=== PATIENT | male | born 1980 | race Caucasian/White ===

== ENCOUNTER 2020-03-25 20:12 | Emergency (ER) | payer OTHER ==
[2020-03-25 20:20] VITALS: BP 127/81; RESP 20; TEMP 98
[2020-03-25] MEDS ORDERED: IPRATROPIUM-ALBUTEROL 3 ML NEB INHALATION STA (20:48)
--- NOTE | 2020-03-25 21:13 | ED ---
Psych HPI - General Source: patient Mode of arrival: ambulatory <Abigail Wooten - Last Filed: 03/25/20 21:10> <Nyasia Ley - Last Filed: 03/26/20 02:33> - General Chief Complaint: Psychiatric Symptoms Stated Complaint: PETITION Time Seen by Provider: 03/25/20 20:23 - History of Present Illness Initial Comments: Patient is a 39-year-old male presenting to emergency Department for psychiatric evaluation. Patient states he just moved to [place] from [place] 2 weeks ago and he was supposed to be living with friends why he looks for job however those friends have told him to move out. Patient states he tried to go to a homeless senior care but he has too many personal items and they told him to leave. Patient states he has been sleeping on the streets for the past 4 days. He states that if he has to live on the streets anymore he feels like he is going to harm himself. He told police this and police petitioned him. Patient states he does not have a specific plan at this time. He denies any homicidal thoughts. He states he does take medication for depression and does have a history of asthma. Patient states since he moved to [place] he feels like his asthma symptoms have increased. He denies any fever, chills, shortness of breath. He does admit to some very mild wheezing. He denies taking alcohol today. Denies any drug use. He has no further complaints at this time. (Abigail Wooten) - Related Data Home Medications Medication Instructions Recorded Confirmed Albuterol Sulfate [Proair Hfa] 1 - 2 puff INHALATION RT-Q6H PRN 03/25/20 03/25/20 FLUoxetine HCL [PROzac] 20 mg PO DAILY 03/25/20 03/25/20 Gabapentin 600 mg PO TID 03/25/20 03/25/20 hydrOXYzine pamoate [Vistaril] 25 mg PO TID PRN 03/25/20 03/25/20 Allergies Allergy/AdvReac Type Severity Reaction Status Date / Time No Known Allergies Allergy Verified 03/25/20 21:04 Review of Systems ROS Other: All systems not noted in ROS Statement are negative. <Abigail Wooten - Last Filed: 03/25/20 21:10> ROS Other: All systems not noted in ROS Statement are negative. <Nyasia Ley - Last Filed: 03/26/20 02:33> ROS Statement: Those systems with pertinent positive or pertinent negative responses have been documented in the HPI. Past Medical History Past Medical History: Asthma, COPD History of Any Multi-Drug Resistant Organisms: None Reported Past Surgical History: Cholecystectomy Past Psychological History: Anxiety, Depression, PTSD Smoking Status: Current every day smoker Past Alcohol Use History: None Reported Past Drug Use History: Marijuana <Abigail Wooten - Last Filed: 03/25/20 21:10> General Exam Limitations: no limitations <Abigail Wooten - Last Filed: 03/25/20 21:10> - General Exam Comments Initial Comments: GENERAL: Patient is well-developed and well-nourished. Patient is nontoxic and in no acute distress. HEAD: Atraumatic, normocephalic. EYES: Pupils equal round and reactive to light, extraocular movements intact, sclera anicteric, conjunctiva are normal. Eyelids were unremarkable. ENT: TMs normal, nares patent, oropharynx clear without exudates. Moist mucous membranes. NECK: Normal range of motion, supple without lymphadenopathy or JVD. LUNGS: Unlabored respirations. Patient has scattered wheezes throughout. HEART: Regular rate and rhythm without murmurs, rubs or gallops. ABDOMEN: Soft, nontender, normoactive bowel sounds. No guarding, no rebound. No masses appreciated. : Deferred MUSCULOSKELETAL: Normal extremities with adequate strength and normal range of motion, no pitting or edema. No clubbing or cyanosis. NEUROLOGICAL: Patient is alert and oriented x 3. Motor and sensory are also intact. Cranial nerves II through XII grossly intact. Symmetrical smile. Normal speech, normal gait. PSYCH: Normal mood, normal affect. SKIN: Warm, Dry, normal turgor, no rashes or lesions noted. (Abigail Wooten) Course Vital Signs 03/25/20 03/25/20 03/25/20 20:17 21:21 21:30 Temperature 98.0 F Pulse Rate 78 76 80 Respiratory 20 Rate Blood Pressure 127/81 O2 Sat by Pulse 96 Oximetry Medical Decision Making <Abigail Wooten - Last Filed: 03/25/20 21:10> <Nyasia Ley - Last Filed: 10/18/20 02:33> - Medical Decision Making Patient is a 39-year-old male here for suicidal ideation. Patient was positioned by police. He just moved to [place] from [place] and the last one to 2 weeks and is now homeless. He does not have a specific plan at this time, denies homicidal thoughts. Patient does have a history of asthma and does have scattered wheezes on exam. I did give him a breathing treatment which did help with the symptoms. Patient will be evaluated by EPS. (Abigail Wooten) Patient was seen and evaluated by the emergency psychiatric services nurse, patient has no suicidal ideation. Does express concern about her homelessness and not being from the state. Patient will need multiple manager social work but no inpatient psychiatric care is warranted at this time. Patient was given information on local shelters however this after dark at this time therefore he cannot check in. He will be allowed to sleep in the emergency department tonight discharge in the morning with referral to shelters. (Nyasia Ley) Disposition <Abigail Wooten - Last Filed: 03/25/20 21:10> Is patient prescribed a controlled substance at d/c from ED?: No <Nyasia Ley - Last Filed: 03/26/20 02:33> Clinical Impression: Adjustment reaction of adult life Disposition: HOME SELF-CARE Condition: Stable Additional Instructions: Go to the senior care tonight as planned Referrals: None,Stated [Primary Care Provider] - 1-2 days
[2020-03-25 21:30] VITALS: PULSE 80
== END 2020-03-26 06:36 | disposition home or self-care (01) ==
LOC: EC 20:12
DX: F43.20 Adjustment disorder, unspecified (principal); J44.9 Chronic obstructive pulmonary disease, unspecified; F41.9 Anxiety disorder, unspecified; F32.9 Major depressive disorder, single episode, unspecified; F17.200 Nicotine dependence, unspecified, uncomplicated; Z79.899 Other long term (current) drug therapy; Z59.0 Homelessness
CPT/HCPCS: 82075; 94640; 99285

== ENCOUNTER 2020-04-19 22:46 | Emergency (ER) | payer OTHER ==
[2020-04-19] MEDS ORDERED: methylPREDNISolone SOD SUCCI 125 MG/2 ML VIAL IV STA (23:00)
[2020-04-19] MEDS ORDERED: IPRATROPIUM-ALBUTEROL 3 ML NEB INHALATION STA (23:00)
[2020-04-19] MEDS ORDERED: SODIUM CHLORIDE 0.9% 500 ML 500 ML IV STA (23:00)
--- NOTE | 2020-04-19 23:11 | ED ---
SOB HPI - General Chief Complaint: Shortness of Breath Stated Complaint: SOB, fever Time Seen by Provider: 04/19/20 22:47 Source: patient, EMS Mode of arrival: EMS Limitations: no limitations - History of Present Illness Initial Comments: Patient is a 39-year-old male presenting to emergency Department with complaints of shortness of breath of increasing over the past few days. Patient states he developed a cough about 3 days ago and has been having a few coughing fits. Patient states he does have a rescue inhaler that he uses occasionally but today he started having a small tickle in the back of his throat when he started coughing. Patient states he had a hard time catching his breath and also had some chest burning while he was coughing. He states he no longer has chest pain at this time. He does have history of asthma and COPD. He states he normally has a nebulizer but he recently moved to [place] does not have this anymore. He denies having a fever, abdominal pain, nausea, vomiting. He does live at a homeless care home at this time. He has no further complaints at this time. Upon arrival to the ER his vitals are stable. - Related Data Home Medications Medication Instructions Recorded Confirmed Albuterol Sulfate [Proair Hfa] 1 - 2 puff INHALATION RT-Q6H PRN 03/25/20 04/19/20 FLUoxetine HCL [PROzac] 20 mg PO DAILY 03/25/20 04/19/20 Gabapentin 600 mg PO TID 03/25/20 04/19/20 hydrOXYzine pamoate [Vistaril] 25 mg PO TID PRN 03/25/20 04/19/20 Previous Rx's Medication Instructions Recorded methylPREDNISolone [Medrol Dose 4 mg PO DIRECTED #1 pack 04/20/20 Pack] Allergies Allergy/AdvReac Type Severity Reaction Status Date / Time No Known Allergies Allergy Verified 04/19/20 23:40 Review of Systems ROS Statement: Those systems with pertinent positive or pertinent negative responses have been documented in the HPI. ROS Other: All systems not noted in ROS Statement are negative. Past Medical History Past Medical History: Asthma, COPD History of Any Multi-Drug Resistant Organisms: None Reported Past Surgical History: Cholecystectomy Past Psychological History: Anxiety, Depression, PTSD Smoking Status: Current every day smoker Past Alcohol Use History: None Reported Past Drug Use History: Marijuana General Exam - General Exam Comments Initial Comments: GENERAL: Patient is well-developed and well-nourished. Patient is nontoxic and in no acute distress. HEAD: Atraumatic, normocephalic. EYES: Pupils equal round and reactive to light, extraocular movements intact, sclera anicteric, conjunctiva are normal. Eyelids were unremarkable. ENT: TMs normal, nares patent, oropharynx clear without exudates. Moist mucous membranes. NECK: Normal range of motion, supple without lymphadenopathy or JVD. LUNGS: Unlabored respirations. Scattered wheezes throughout. Dry cough noted. HEART: Regular rate and rhythm without murmurs, rubs or gallops. ABDOMEN: Soft, nontender, normoactive bowel sounds. No guarding, no rebound. No masses appreciated. : Deferred MUSCULOSKELETAL: Normal extremities with adequate strength and normal range of motion, no pitting or edema. No clubbing or cyanosis. NEUROLOGICAL: Patient is alert and oriented x 3. Motor and sensory are also intact. Cranial nerves II through XII grossly intact. Symmetrical smile. Normal speech, normal gait. PSYCH: Normal mood, normal affect. SKIN: Warm, Dry, normal turgor, no rashes or lesions noted. Limitations: no limitations Course Vital Signs 04/19/20 04/19/20 04/19/20 22:47 23:10 23:26 Temperature 98.0 F Pulse Rate 98 86 86 Respiratory 27 H Rate Blood Pressure 135/96 O2 Sat by Pulse 97 Oximetry 04/20/20 04/20/20 00:46 01:14 Temperature 97.6 F 97.7 F Pulse Rate 84 97 Respiratory 20 18 Rate Blood Pressure 124/64 128/84 O2 Sat by Pulse 95 97 Oximetry Medical Decision Making - Medical Decision Making Patient is a 39-year-old male here for shortness of breath and a cough 3 days. His vitals are stable, afebrile. He does have history of asthma and COPD. Currently living in a homeless care home. EKG shows no acute process, chest x-ray shows no acute process. Labs are normal, influenza is negative, Covid test is pending. Patient did receive steroids, breathing treatment does report improve ment of symptoms. I discussed with patient this is most likely an asthma exacerbation, bronchitis. I will continue him on steroids with first dose starting tomorrow. He is stable for discharge. He does have albuterol inhaler at home. He can continue to use this for shortness of breath. Return parameters were discussed with the patient and he verbalized understanding. - Lab Data Result diagrams: 04/19/20 23:10 04/19/20 23:10 Lab Results 04/19/20 04/19/20 04/19/20 Range/Units 23:10 23:10 23:10 WBC 10.4 (3.8-10.6) k/uL RBC 4.58 (4.30-5.90) m/uL Hgb 12.6 L (13.0-17.5) gm/dL Hct 40.2 (39.0-53.0) % MCV 87.7 (80.0-100.0) fL MCH 27.6 (25.0-35.0) pg MCHC 31.4 (31.0-37.0) g/dL RDW 13.8 (11.5-15.5) % Plt Count 282 (150-450) k/uL MPV 8.0 Neutrophils % 65 % Lymphocytes % 21 % Monocytes % 5 % Eosinophils % 6 % Basophils % 2 % Neutrophils # 6.8 (1.3-7.7) k/uL Lymphocytes # 2.2 (1.0-4.8) k/uL Monocytes # 0.5 (0-1.0) k/uL Eosinophils # 0.6 (0-0.7) k/uL Basophils # 0.2 (0-0.2) k/uL PT 10.4 (9.0-12.0) sec INR 1.0 (<1.2) APTT 23.4 (22.0-30.0) sec Sodium 137 (137-145) mmol/L Potassium 4.7 (3.5-5.1) mmol/L Chloride 103 (98-107) mmol/L Carbon Dioxide 31 H (22-30) mmol/L Anion Gap 3 mmol/L BUN 18 (9-20) mg/dL Creatinine 0.86 (0.66-1.25) mg/dL Est GFR (CKD-EPI)AfAm >90 (>60 ml/min/1.73 sqM) Est GFR (CKD-EPI)NonAf >90 (>60 ml/min/1.73 sqM) Glucose 100 H (74-99) mg/dL Calcium 8.7 (8.4-10.2) mg/dL Total Bilirubin 0.3 (0.2-1.3) mg/dL AST 22 (17-59) U/L ALT 19 (4-49) U/L Alkaline Phosphatase 109 (38-126) U/L Troponin I (0.000-0.034) ng/mL Total Protein 6.9 (6.3-8.2) g/dL Albumin 3.6 (3.5-5.0) g/dL Influenza Type A RNA (Not Detectd) Influenza Type B (PCR) (Not Detectd) 04/19/20 04/19/20 Range/Units 23:10 23:10 WBC (3.8-10.6) k/uL RBC (4.30-5.90) m/uL Hgb (13.0-17.5) gm/dL Hct (39.0-53.0) % MCV (80.0-100.0) fL MCH (25.0-35.0) pg MCHC (31.0-37.0) g/dL RDW (11.5-15.5) % Plt Count (150-450) k/uL MPV Neutrophils % % Lymphocytes % % Monocytes % % Eosinophils % % Basophils % % Neutrophils # (1.3-7.7) k/uL Lymphocytes # (1.0-4.8) k/uL Monocytes # (0-1.0) k/uL Eosinophils # (0-0.7) k/uL Basophils # (0-0.2) k/uL PT (9.0-12.0) sec INR (<1.2) APTT (22.0-30.0) sec Sodium (137-145) mmol/L Potassium (3.5-5.1) mmol/L Chloride (98-107) mmol/L Carbon Dioxide (22-30) mmol/L Anion Gap mmol/L BUN (9-20) mg/dL Creatinine (0.66-1.25) mg/dL Est GFR (CKD-EPI)AfAm (>60 ml/min/1.73 sqM) Est GFR (CKD-EPI)NonAf (>60 ml/min/1.73 sqM) Glucose (74-99) mg/dL Calcium (8.4-10.2) mg/dL Total Bilirubin (0.2-1.3) mg/dL AST (17-59) U/L ALT (4-49) U/L Alkaline Phosphatase (38-126) U/L Troponin I <0.012 (0.000-0.034) ng/mL Total Protein (6.3-8.2) g/dL Albumin (3.5-5.0) g/dL Influenza Type A RNA Not Detected (Not Detectd) Influenza Type B (PCR) Not Detected (Not Detectd) - EKG Data EKG Comments: Normal sinus rhythm, incomplete RBBB, no signs of acute ischemia. Ventricular rate 94, SC interval 148, QTC 346. Disposition Clinical Impression: Bronchitis, Asthma Disposition: HOME SELF-CARE Condition: Stable Instructions (If sedation given, give patient instructions): Acute Bronchitis (ED) Additional Instructions: Please return to the Emergency Department if symptoms worsen or any other concerns. Take steroids as prescribed. May continue to use albuterol inhaler for sh ortness of breath. Follow-up with PCP. Prescriptions: methylPREDNISolone [Medrol Dose Pack] 4 mg PO DIRECTED #1 pack Is patient prescribed a controlled substance at d/c from ED?: No Referrals: None,Stated [Primary Care Provider] - 1-2 days Gwendolyn Pringle MD [STAFF PHYSICIAN] - 1-2 days
[2020-04-19 23:21] LABS: Basophils # (A) 0.2 k/uL (0-0.2); Basophils % (A) 2 %; Eosinophils # (A) 0.6 k/uL (0-0.7); Eosinophils % (A) 6 %; HCT 40.2 % (39.0-53.0); HGB 12.6 gm/dL (13.0-17.5); Lymphocytes # (A) 2.2 k/uL (1.0-4.8); Lymphocytes % (A) 21 %; MCH 27.6 pg (25.0-35.0); MCHC 31.4 g/dL (31.0-37.0); MCV 87.7 fL (80.0-100.0); Monocytes # (A) 0.5 k/uL (0-1.0); Monocytes % (A) 5 %; Neutrophils # (A) 6.8 k/uL (1.3-7.7); Neutrophils % (A) 65 %; Platelet Count 282 k/uL (150-450); RBC 4.58 m/uL (4.30-5.90); RDW 13.8 % (11.5-15.5); WBC 10.4 k/uL (3.8-10.6)
[2020-04-19 23:28] LABS: Partial Thromboplastin Time 23.4 sec (22.0-30.0); Prothrombin Time 10.4 sec (9.0-12.0)
[2020-04-19 23:30] LABS: ALT 19 U/L (4-49); AST 22 U/L (17-59); African American GFR (CKD) >90 (>60 ml/min/1.73 sqM); Albumin 3.6 g/dL (3.5-5.0); Alkaline Phosphatase 109 U/L (38-126); Anion Gap 3 mmol/L; Blood Urea Nitrogen 18 mg/dL (9-20); Calcium 8.7 mg/dL (8.4-10.2); Carbon Dioxide 31 mmol/L (22-30); Chloride 103 mmol/L (98-107); Glucose 100 mg/dL (74-99); Non-African American GFR(CKD) >90 (>60 ml/min/1.73 sqM); Potassium 4.7 mmol/L (3.5-5.1); Sodium 137 mmol/L (137-145); Total Bilirubin 0.3 mg/dL (0.2-1.3); Total Protein 6.9 g/dL (6.3-8.2)
--- NOTE | 2020-04-19 23:51 | XR ---
EXAMINATION TYPE: XR chest 2V DATE OF EXAM: 04/19/2020 COMPARISON: NONE HISTORY: Difficulty breathing TECHNIQUE: 2 views FINDINGS: Heart and mediastinum are normal. Lungs are clear. Diaphragm is normal. Bony thorax appears normal. There are chest leads. IMPRESSION: Normal chest.
[2020-04-20 01:16] VITALS: BP 128/84; PULSE 97; RESP 18; TEMP 97.7
== END 2020-04-20 01:18 | disposition home or self-care (01) ==
LOC: EC 22:46
DX: J44.9 Chronic obstructive pulmonary disease, unspecified (principal); F41.9 Anxiety disorder, unspecified; F32.9 Major depressive disorder, single episode, unspecified; Z79.899 Other long term (current) drug therapy; F17.200 Nicotine dependence, unspecified, uncomplicated; Z90.49 Acquired absence of other specified parts of digestive tract; Z20.828 Contact with and (suspected) exposure to other viral communicable diseases
CPT/HCPCS: 99285; 96374; 36415; 94640; 93005; 80053; 84484; 85025; 85610; 85730; 87502; 71046; U0003; J2930